=== PATIENT | male | born 1980 | race Caucasian/White ===

== ENCOUNTER 2020-03-26 16:33 | Observation (INO) | payer OTHER ==
[2020-03-26] MEDS ORDERED: ASPIRIN 81 MG PO STA (17:10)
[2020-03-26 17:39] LABS: Basophils # (A) 0.1 k/uL (0-0.2); Basophils % (A) 1 %; Eosinophils # (A) 0.3 k/uL (0-0.7); Eosinophils % (A) 3 %; HCT 48.3 % (39.0-53.0); Lymphocytes # (A) 2.4 k/uL (1.0-4.8); Lymphocytes % (A) 25 %; MCH 30.8 pg (25.0-35.0); MCHC 33.1 g/dL (31.0-37.0); MCV 93.2 fL (80.0-100.0); Mean Platelet Volume 7.3; Monocytes # (A) 0.5 k/uL (0-1.0); Monocytes % (A) 5 %; Neutrophils # (A) 6.2 k/uL (1.3-7.7); Neutrophils % (A) 65 %; Platelet Count 274 k/uL (150-450); RBC 5.18 m/uL (4.30-5.90); RDW 12.2 % (11.5-15.5); WBC 9.7 k/uL (3.8-10.6)
[2020-03-26 17:49] LABS: ALT 21 U/L (4-49); AST 27 U/L (17-59); African American GFR (CKD) >90 (>60 ml/min/1.73 sqM); Alkaline Phosphatase 48 U/L (38-126); Anion Gap 7 mmol/L; Blood Urea Nitrogen 19 mg/dL (9-20); Calcium 10.1 mg/dL (8.4-10.2); Carbon Dioxide 30 mmol/L (22-30); Chloride 101 mmol/L (98-107); Glucose 91 mg/dL (74-99); Magnesium 1.9 mg/dL (1.6-2.3); Non-African American GFR(CKD) >90 (>60 ml/min/1.73 sqM); Potassium 3.8 mmol/L (3.5-5.1); Sodium 138 mmol/L (137-145); Total Bilirubin 0.7 mg/dL (0.2-1.3); Total Protein 8.2 g/dL (6.3-8.2)
[2020-03-26 17:53] LABS: INR 1.1 (<1.2); Partial Thromboplastin Time 24.5 sec (22.0-30.0); Prothrombin Time 11.2 sec (9.0-12.0)
[2020-03-26 18:02] LABS: D-Dimer <0.17 mg/L FEU (<0.60)
[2020-03-26] MEDS ORDERED: PANTOPRAZOLE 40 MG/10 ML VIAL IVP STA (18:16)
[2020-03-26] MEDS ORDERED: SUCRALFATE 1 GM TAB PO STA (18:16)
--- NOTE | 2020-03-26 19:03 | XR ---
EXAMINATION: XR chest 2V DATE AND TIME: 03/26/2020 6:34 PM CLINICAL INDICATION: PHH; Chest Pain TECHNIQUE: Departmental protocol COMPARISON: None FINDINGS: The lungs demonstrate prominent hyperinflation and COPD changes. There are a few scattered subcentimeter nodular opacities, greater on the left. These are entirely no nspecific and can be further evaluated with 3 month follow-up CT characterization is suggested. If th ere are prior outside imaging studies which can be submitted for comparison, an addendum can be made to this report. No definite acute pulmonary findings. The pleural spaces are negative. The cardiac silhouette is not enlarged. The remainder of the mediastinal silhouette is unremarkable. The skeletal structures and soft tissues are negative for acute findings. IMPRESSION: 1. No definite acute radiographic process. 2. Prominent hyperinflation and COPD changes. 3. A few scattered subcentimeter nonspecific pulmonary opacities as discussed, greater on the left, for which three-month follow-up chest CT characterization is suggested.
--- NOTE | 2020-03-26 19:07 | ED ---
Chest Pain HPI - General Chief Complaint: Chest Pain Stated Complaint: Chest pain, SOB Time Seen by Provider: 03/26/20 17:09 Source: patient Mode of arrival: ambulatory Limitations: no limitations - History of Present Illness Initial Comments: 39-year-old male presenting today for chief complaint of chest pressure neck fullness. Patient states that for the past 3 weeks has had intermittent chest pressure he states is not sure if this is related to him quitting cigarette smoking. He describes discomfort as a pressure/pushing pain under center of ches t without radiation. Pain no present substernally today. He states he still smokes marijuana. Patient states he feels slightly short of breath for the past week he's had a fullness the base of his neck he denies any burning sensation abdominal pain ripping tearing back pain he denies any pain with deep inspiration leg swelling calf pain hemoptysis, hx cancer/DVT/PE. patient denies recent surgeries/immobilization/injuries. Patient denies fevers, cough, difficulty swallowing. patient states when symptoms slightly worsened today he came to the ER. - Related Data Home Medications Medication Instructions Recorded Confirmed No Known Home Medications 03/26/20 03/26/20 Allergies Allergy/AdvReac Type Severity Reaction Status Date / Time No Known Allergies Allergy Verified 03/26/20 19:38 Review of Systems ROS Statement: Those systems with pertinent positive or pertinent negative responses have been documented in the HPI. ROS Other: All systems not noted in ROS Statement are negative. Past Medical History Past Medical History: No Reported History History of Any Multi-Drug Resistant Organisms: None Reported Past Surgical History: Orthopedic Surgery Additional Past Surgical History / Comment(s): L hand, R hand skin graft Past Psychological History: No Psychological Hx Reported Smoking Status: Former smoker Past Drug Use History: Marijuana - Past Family History Mother Family Medical History: No Reported History Father History Unknown: Yes General Exam - General Exam Comments Initial Comments: General: The patient is awake and alert, in no distress Eye: +3 mm pupils are equal, round and reactive to light, extra-ocular movements are intact. No nystagmus. There is normal conjunctiva bilaterally. No signs of icterus. Ears, nose, mouth and throat: There are moist mucous membranes and no oral lesions. Neck: The neck is supple, there is no tenderness or JVD. Cardiovascular: There is a regular rate and rhythm. No murmur, rub or gallop is appreciated. Respiratory: Lungs are clear to auscultation, respirations are non-labored, breath sounds are equal. No wheezes, stridor, rales, or rhonchi. Gastrointestinal: Soft, non-distended, non-tender abdomen without masses or organomegaly noted. There is no rebound or guarding present. Musculoskeletal: Normal ROM, no tenderness. Strength 5/5. Sensation intact. Radial and DP pulses equal bilaterally 2+. Neurological: A&O x 3. CN II-XII intact, There are no obvious motor or sensory deficits. Coordination appears grossly intact. Speech is normal. Skin: Skin is warm and dry and no rashes or lesions are noted. No leg swelling, no calf pain Psychiatric: Cooperative, appropriate mood & affect, normal judgment. Limitations: no limitations Course Vital Signs 03/26/20 03/26/20 03/26/20 16:36 16:50 18:28 Temperature 98 F Pulse Rate 90 Respiratory 18 20 20 Rate Blood Pressure 180/103 O2 Sat by Pulse 99 Oximetry 03/26/20 18:35 Temperature 98.5 F Pulse Rate 67 Respiratory 18 Rate Blood Pressure 135/88 O2 Sat by Pulse 99 Oximetry Chest Pain MDM - MDM 39yo male, smoker presenting for cc of chest discomfort x 3 weeks, neck fullness. Nodules on CXR. Troponin initially (-). Patient VS stable. patient given aspirin. Patient will be admitted for serial troponins and further evaluation. Dr Salcido is agreeable to this care plan/admission. He spoke with admitting providers. Patient agreeable to care plan and admission. Disposition Clinical Impression: Chest discomfort Disposition: ADMITTED IP TO THIS HOSP Condition: Stable Is patient prescribed a controlled substance at d/c from ED?: No Time of Disposition: 19:20 Decision to Admit Reason: Admit from EC Decision Date: 03/26/20 Decision Time: 19:20
[2020-03-26] MEDS ORDERED: NITROGLYCERIN SL TABS 0.4 MG TAB SUBLINGUAL PRN (19:20)
[2020-03-26] MEDS ORDERED: MORPHINE SULFATE 2 MG/ML SYRINGE IVP PRN (19:20)
[2020-03-26 20:06] VITALS: RESP 16
[2020-03-27] MEDS ORDERED: ASPIRIN 325 MG TAB PO SCH (09:00)
--- NOTE | 2020-03-27 09:40 | P.CRDCN ---
History of Present Illness History of present illness: HISTORY OF PRESENTING ILLNESS This is a pleasant 39-year-old male past medical history significant for nicotine and marijuana dependence. Denies prior history of coronary artery disease and does not follow in the office with a leveler helper. We have been asked to see in consultation for chest pain. He states this all started approximately 3 weeks ago. He states when he was smoking a cigarette every time he took an inhalation he felt intense burning down his throat and into his chest. This prompted him to stop smoking. Unfortunately he still smokes a significant amount of marijuana. He states over the previous 3 weeks he is also experiencing a sensation of something being stuck in his throat. It hurts when he swallows. Yesterday the symptoms of throat pain worse over intense is afraid he wasn't going to be able to swallow his own saliva. He then started feeling a discomfort in his chest and he said his heart started racing he became scared and had a self proclaimed panic attack. DIAGNOSTICS EKG reveals sinus mechanism with LVH. Chest xray negative for an acute cardiopulmonary process. Laboratory reviewed, CBC unremarkable, d-dimer negative, sodium 138, potassium 3.8, creatinine 0.91, cardiac enzymes negative 3, magnesium 1.9. He takes no daily cardiac medications. REVIEW OF SYSTEMS At the time of my exam: CONSTITUTIONAL: Denies fever or chills. CARDIOVASCULAR: Denies chest pain, shortness of breath, orthopnea, PND or palpitations. RESPIRATORY: Denies cough. GASTROINTESTINAL: Complains of difficulty swallowing. Denies abdominal pain, diarrhea, constipation, nausea or vomiting. MUSCULOSKELETAL: Denies myalgias. NEUROLOGIC: Denies numbness, tingling, headacbe or weakness. ENDOCRINE: Denies fatigue, weight change, polydipsia or polyurina. GENITOURINARY: Denies burning, hematuria or urgency with micturation. HEMATOLOGIC: Denies history of anemia or bleeding. PHYSICAL EXAMINATION Blood pressure 109/73 heart rate 72 afebrile and maintaining oxygen saturation on room air. CONSTITUTIONAL: No apparent distress. HEENT: Head is normocephalic. Pupils are equal, round. Sclerae anicteric. Mucous membranes of the mouth are moist. No JVD. No carotid bruit. CHEST EXAMINATION: Lungs are clear to auscultation. No chest wall tenderness is noted on palpation or with deep breathing. HEART EXAMINATION: Regular rate and rhythm. S1, S2 heard. No murmurs, gallops or rub. ABDOMEN: Soft, nontender. Positive bowel sounds. EXTREMITIES: 2+ peripheral pulses, no lower extremity edema and no calf tenderness. NEUROLOGIC EXAMINATION: Patient is awake, alert and oriented x3. ASSESSMENT Chest pain Difficulty swallowing Throat pain PLAN An acute coronary event has been ruled out. Pain is atypical for angina. Recommend outpatient follow-up with ENT and is unremarkable possibly GI. No further inpatient cardiac testing at this time. Follow-up in the office with Dr. Hartman in 3-4 weeks. Cessation of tobacco and marijuana strongly recommended. Thank you kindly for this consultation. Nurse Practitioner note has been reviewed, I agree with a documented findings and plan of care. Patient was seen and examined. Past Medical History Past Medical History: No Reported History History of Any Multi-Drug Resistant Organisms: None Reported Past Surgical History: Orthopedic Surgery Additional Past Surgical History / Comment(s): L hand, R hand skin graft Past Psychological History: No Psychological Hx Reported Smoking Status: Former smoker Past Drug Use History: Marijuana - Past Family History Mother Family Medical History: No Reported History Father History Unknown: Yes Medications and Allergies Home Medications Medication Instructions Recorded Confirmed Type No Known Home Medications 03/26/20 03/26/20 History Allergies Allergy/AdvReac Type Severity Reaction Status Date / Time No Known Allergies Allergy Verified 03/26/20 19:38 Physical Exam Vitals: Vital Signs Temp Pulse Pulse Resp BP BP Pulse Ox 03/27/20 07:00 97.8 F 74 16 109/73 97 03/27/20 02:50 98.5 F 76 16 99/66 97 03/26/20 20:04 97.7 F 66 16 126/77 99 03/26/20 19:45 98.3 F 75 18 122/77 98 03/26/20 18:35 98.5 F 67 18 135/88 99 03/26/20 18:28 20 03/26/20 16:50 20 03/26/20 16:36 98 F 90 18 180/103 99 Intake and Output 03/26/20 03/27/20 03/27/20 22:59 06:59 14:59 Other: # Voids 1 3 Weight 58.967 kg Results 03/26/20 17:31 03/26/20 17:31 Cardiac Enzymes 03/26/20 03/26/20 03/26/20 Range/Units 17:31 17:31 20:08 AST 27 (17-59) U/L Troponin I <0.012 <0.012 (0.000-0.034) ng/mL 03/26/20 Range/Units 22:50 AST (17-59) U/L Troponin I <0.012 (0.000-0.034) ng/mL Coagulation 03/26/20 Range/Units 17:31 PT 11.2 (9.0-12.0) sec APTT 24.5 (22.0-30.0) sec CBC 03/26/20 Range/Units 17:31 WBC 9.7 (3.8-10.6) k/uL RBC 5.18 (4.30-5.90) m/uL Hgb 16.0 (13.0-17.5) gm/dL Hct 48.3 (39.0-53.0) % Plt Count 274 (150-450) k/uL Comprehensive Metabolic Panel 03/26/20 Range/Units 17:31 Sodium 138 (137-145) mmol/L Potassium 3.8 (3.5-5.1) mmol/L Chloride 101 (98-107) mmol/L Carbon Dioxide 30 (22-30) mmol/L BUN 19 (9-20) mg/dL Creatinine 0.91 (0.66-1.25) mg/dL Glucose 91 (74-99) mg/dL Calcium 10.1 (8.4-10.2) mg/dL AST 27 (17-59) U/L ALT 21 (4-49) U/L Alkaline Phosphatase 48 (38-126) U/L Total Protein 8.2 (6.3-8.2) g/dL Albumin 5.0 (3.5-5.0) g/dL Current Medications Generic Name Dose Route Start Last Admin Trade Name Freq PRN Reason Stop Dose Admin Aspirin 325 mg 03/27/20 09:00 Aspirin 325 Mg Tab PO DAILY DAWSON Morphine Sulfate 2 mg 03/26/20 19:20 Morphine Sulfate 2 Mg/Ml Syringe IVP Q4H PRN Pain/Discomfort Nitroglycerin 0.4 mg 03/26/20 19:20 Nitroglycerin Sl Tabs 0.4 Mg Tab SUBLINGUAL Q5M PRN Chest Pain Intake and Output 03/26/20 03/27/20 03/27/20 22:59 06:59 14:59 Other: # Voids 1 3 Weight 58.967 kg 03/26/20 17:31 03/26/20 17:31
[2020-03-27] MEDS ORDERED: methylPREDNISolone SOD SUCCI 40 MG/ML 1 ML VIAL IV STA (09:59)
--- NOTE | 2020-03-27 10:05 | P.DS ---
Providers Date of admission: 03/26/20 19:14 Attending physician: Srini Noel Consults: 03/26/20 19:20 Consult Physician Urgent Consulting Provider: Shayne Bingham Consult Reason/Comments: chest discomfort Do you want consulting provider notified?: Yes Primary care physician: Stated None Hospital Course: Please refer to my HPI for further details. Patient Condition at Discharge: Stable Plan - Discharge Summary New Discharge Prescriptions: New Amoxicillin/Potassium Clav [Augmentin 500-125 Tablet] 1 tab PO Q12HR 5 Days #10 tab methylPREDNISolone Dose Pack [Medrol Dose Pack] 4 mg PO DIRECTED #21 package Famotidine [Pepcid] 20 mg PO BID #14 tablet Discharge Medication List Amoxicillin/Potassium Clav [Augmentin 500-125 Tablet] 1 tab PO Q12HR 5 Days #10 tab 03/27/20 [Rx] Famotidine [Pepcid] 20 mg PO BID #14 tablet 03/27/20 [Rx] methylPREDNISolone Dose Pack [Medrol Dose Pack] 4 mg PO DIRECTED #21 package 03/27/20 [Rx] Follow up Appointment(s)/Referral(s): Rene Mcdonough MD [STAFF PHYSICIAN] - 3 Weeks Jenna Martinez MD [REFERRING] - 1 Week None,Stated [Primary Care Provider] - 1-2 days Kurt Clayton MD [STAFF PHYSICIAN] - 1 Week Patient Instructions/Handouts: Tonsillitis (DC)
--- NOTE | 2020-03-27 10:05 | P.HPIM ---
History of Present Illness 39-year-old male was admitted for chest pain. Patient has a chest pressure like sensation mild pain constant. Patient main complaint is the fullness in the throat area denied any dysphagia. Upon exam patient has right tonsil which is significantly enlarged and the actually occupying the entire posterior pharyngeal space on the right side close to reveal a. Patient denied any fever chills patient had any history of asthma or ALLERGIES. Patient still smokes marijuana quit smoking about 2 weeks ago. Patient does note pressure is fairly significant and severe. Patient denied any diaphoresis or shortness of breath chest pain is nonpruritic. Ruled out acute coronary syndromes troponins were negative EKGs are negative cardiology evaluated the patient cleared for discharge patient I did d-dimer which was negative as well. Chest x-ray did not show any pneumonia. Patient completed 3 rounds of antibiotics for sore throat and strep Review of Systems REVIEW OF SYSTEMS: CONSTITUTIONAL: No fever, no malaise, no fatigue. HEENT: No recent visual problems or hearing problems. CARDIOVASCULAR: No chest pain, orthopnea, PND, no palpitations, no syncope. PULMONARY: No shortness of breath, no cough, no hemoptysis. GASTROINTESTINAL: No diarrhea, no nausea, no vomiting, no abdominal pain. NEUROLOGICAL: No headaches, no weakness, no numbness. HEMATOLOGICAL: Denies any bleeding or petechiae. GENITOURINARY: Denies any burning micturition, frequency, or urgency. MUSCULOSKELETAL/RHEUMATOLOGICAL: Denies any joint pain, swelling, or any muscle pain. ENDOCRINE: Denies any polyuria or polydipsia. The rest of the 14-point review of systems is negative. Past Medical History Past Medical History: No Reported History History of Any Multi-Drug Resistant Organisms: None Reported Past Surgical History: Orthopedic Surgery Additional Past Surgical History / Comment(s): L hand, R hand skin graft Past Psychological History: No Psychological Hx Reported Smoking Status: Former smoker Past Drug Use History: Marijuana - Past Family History Mother Family Medical History: No Reported History Father History Unknown: Yes Medications and Allergies Home Medications Medication Instructions Recorded Confirmed Type Amoxicillin/Potassium Clav 1 tab PO Q12HR 5 Days #10 tab 03/27/20 Rx [Augmentin 500-125 Tablet] Famotidine [Pepcid] 20 mg PO BID #14 tablet 03/27/20 Rx methylPREDNISolone Dose Pack 4 mg PO DIRECTED #21 package 03/27/20 Rx [Medrol Dose Pack] Allergies Allergy/AdvReac Type Severity Reaction Status Date / Time No Known Allergies Allergy Verified 03/26/20 19:38 Physical Exam Vitals: Vital Signs Temp Pulse Pulse Resp BP BP Pulse Ox 03/27/20 07:00 97.8 F 74 16 109/73 97 03/27/20 02:50 98.5 F 76 16 99/66 97 03/26/20 20:04 97.7 F 66 16 126/77 99 03/26/20 19:45 98.3 F 75 18 122/77 98 03/26/20 18:35 98.5 F 67 18 135/88 99 03/26/20 18:28 20 03/26/20 16:50 20 03/26/20 16:36 98 F 90 18 180/103 99 Intake and Output 03/26/20 03/27/20 03/27/20 22:59 06:59 14:59 Other: # Voids 1 3 Weight 58.967 kg PHYSICAL EXAMINATION: GENERAL: The patient is alert and oriented x3, not in any acute distress. Well developed, well nourished. HEENT: Pupils are round and equally reacting to light. EOMI. No scleral icterus. No conjunctival pallor. Normocephalic, atraumatic. No pharyngeal erythema. No thyromegaly. has or tonsillar enlargement as mentioned above patient doesn't have any exudate consistent with strep infection. CARDIOVASCULAR: S1 and S2 present. No murmurs, rubs, or gallops. PULMONARY: Chest is clear to auscultation, no wheezing or crackles. ABDOMEN: Soft, nontender, nondistended, normoactive bowel sounds. No palpable organomegaly. MUSCULOSKELETAL: No joint swelling or deformity. EXTREMITIES: No cyanosis, clubbing, or pedal edema. NEUROLOGICAL: Gross neurological examination did not reveal any focal deficits. SKIN: No rashes. Results CBC & Chem 7: 03/26/20 17:31 03/26/20 17:31 Thrombosis Risk Factor Assmnt - Choose All That Apply Any of the Below Risk Factors Present?: No Other Risk Factors: No Other congenital or acquired thrombophilia - If yes, enter type in comment: No Thrombosis Risk Factor Assessment Level: Very Low Risk Assessment and Plan Plan: -Chest pain atypical ruled out acute concurrent syndromes cleared for discharge Chronic tonsillitis: Patient will need ENT evaluation. Antibiotics may not help us patient is being discharged and given 5 days of Augmentin patient will be given Medrol Dosepak as well as GI prophylaxis patient will be referred to ENT clinic. Patient doesn't have laryngitis. Mildly dysphagia although patient is able to eat and drink. We'll also obtain a barium swallow before discharge.
[2020-03-27] MEDS ORDERED: AMOXIC-POT CLAV 875-125MG 1 EACH TAB PO SCH (10:15)
[2020-03-27] MEDS ORDERED: AMOXIC-POT CLAV 200-28.5MG/5ML 100 ML BOTTLE PO SCH (11:00)
--- NOTE | 2020-03-27 11:14 | FL ---
ESOPHOGRAM. HISTORY: Dysphagia Esophagram was performed per the air contrast technique. The patient swallowed barium and effervesce nt crystals without difficulty or delay. Esophageal peristalsis and motility appear to be within normal limits. There is no evidence for filling defect, mass or diverticulum. No hiatal hernia seen. Subsequently single contrast cervical esophagram was performed. There is evidence for aspiration. Cer vical esophagus at the level of the thoracic inlet is deviated from right to left. IMPRESSION: There is evidence for aspiration. Cervical esophagus at the level of the thoracic inlet i s deviated from right to left.
[2020-03-27 14:50] VITALS: BP 134/73; PULSE 81; TEMP 98
[2020-03-27 19:36] LABS: Hemoglobin A1C 5.3 % (4.0-6.0)
[2020-03-27 20:23] LABS: Chol/HDL Ratio 3.56; LDL Cholesterol,Calculated 116.2 mg/dL (0.0-131.0); VLDL Calculation 11.8 mg/dL (5.00-40.00)
== END 2020-03-27 15:16 | disposition home or self-care (01) ==
LOC: EC 16:33 → 6NMEDSUR 19:14
PROVIDERS: ADMIT Hospitalist; ATTEND Hospitalist
DX: R07.89 Other chest pain (principal); J35.01 Chronic tonsillitis; R13.10 Dysphagia, unspecified; F12.90 Cannabis use, unspecified, uncomplicated; Z87.891 Personal history of nicotine dependence
CPT/HCPCS: 96375; 93005 ×2; 96374; 99285; 36415; 92610; 85379; 83880; 80061; 80053; 84443; 83735; 84484; 85025; 85610; 85730; 83036; 87635; 74220; 71046; G0378 ×2; J2920; C9113